=== PATIENT | male | born 1995 | race African-American/Black ===

== ENCOUNTER 2019-05-13 22:49 | Emergency (ER) | payer SELFPAY ==
[~2019-05-13] VITALS: Ht 190.5 cm; Wt 167.0 kg
[2019-05-13] MEDS ORDERED: NS IV 1000 ML 1,000 ML IV SCH (23:01)
[2019-05-13 23:15] LABS: BASOPHILS % (AUTO) 0 % (0-10); EOSINOPHILS # (AUTO) 0.1 10^3/uL (0.0-0.3); EOSINOPHILS % (AUTO) 2 % (0-10); HEMATOCRIT 46 % (40-54); HEMOGLOBIN 15.8 G/DL (13.3-17.7); LYMPHOCYTES % (AUTO) 43 % (12-44); MEAN CORPUSCULAR HEMOGLOBIN 29 PG (25-34); MEAN CORPUSCULAR HGB CONC 34 G/DL (32-36); MEAN CORPUSCULAR VOLUME 84 FL (80-99); MEAN PLATELET VOLUME 11.7 FL (7.4-10.4); MONOCYTES # (AUTO) 0.4 X 10^3 (0.0-1.0); MONOCYTES % (AUTO) 5 % (0-12); NEUTROPHILS # (AUTO) 3.5 X 10^3 (1.8-7.8); NEUTROPHILS % (AUTO) 50 % (42-75); PLATELET COUNT 319 10^3/uL (130-400); RED CELL DISTRIBUTION WIDTH 14.9 % (10.0-14.5); WHITE BLOOD COUNT 6.9 10^3/uL (4.3-11.0)
--- NOTE | 2019-05-13 23:22 | ED Syncope ---
General Chief Complaint: Dizziness/Syncope Stated Complaint: SYNCOPE Source of Information: Patient, EMS, Other Exam Limitations: Physical Impairments History of Present Illness Date Seen by Provider: May 13, 2019 Time Seen by Provider: 22:48 Initial Comments Patient arrives to the ER by EMS from [facility] where she was eating dinner had about a half a shot of alcohol and felt warm and flushed in the face so he got up to go the bathroom. His significant other brought him something to drink and he said he started to feel little better so when he got up to walk out of the bathroom she says he collapsed to the floor striking his head. He denies striking his head or completely passing out. He is not had any fevers or chills nausea vomiting diarrhea or pain. He denies shortness of breath. He has no history of seizure disorders or any medical disorder. He does do annual checkups with his doctor. He denies any diabetes. He had a blood sugar of 130s per EMS. No witnessed convulsions or seizure-like activity. He has been in town for a visiting family and was on his way back home to [place]. He is not having any shortness of breath, pain in his calves or history of clotting disorder. No significant familial medical history. Allergies and Home Medications Allergies Coded Allergies: No Known Drug Allergies (Unverified , 05/13/19) Patient Home Medication List Home Medication List Reviewed: Yes Review of Systems Constitutional: No chills, No diaphoresis; dizziness; No fever, No malaise; weakness EENTM: No ear discharge, No hearing loss, No ear pain, No blurred vision Respiratory: No cough, No short of breath Cardiovascular: No chest pain, No edema Gastrointestinal: No abdominal pain, No constipation, No diarrhea, No nausea Genitourinary: No discharge, No dysuria Musculoskeletal: No back pain, No joint pain Skin: No pruritus, No rash Psychiatric/Neurological: Denies Headache, Denies Numbness, Denies Paresthesia All Other Systems Reviewed Negative Unless Noted: Yes Past Mcrzoxg-Jujjsv-Uognav Hx Patient Social History Alcohol Use: Occasionally Uses Alcohol Beverage of Choice: Cheap Liquor Recreational Drug Use: Yes Drug of Choice: MJ Smoking Status: Never a Smoker Recent Foreign Travel: No Contact w/Someone Who Travel: No Physical Exam Vital Signs Vital Signs - First Documented 05/13/19 22:50 Temp 36.5 Pulse 91 Resp 18 B/P (MAP) 143/76 (98) Capillary Refill : Height, Weight, BMI Height: '" Weight: lbs. oz. kg; BMI Method: General Appearance: Mild Distress, Obese HEENT: PERRL/EOMI, Pharynx Normal, Moist Mucous Membranes; No Pharyngeal Erythema; TM Abnormal (R) (injection, mild erythema without loss of lucency or landmarks of the tympanic membrane); No Tonsillar Enlargement Neck: Full Range of Motion, Normal Inspection, Non Tender, Supple Cardiovascular: Regular Rate, Rhythm, No Murmur, Normal Peripheral Pulses Respiratory: Chest Non Tender, Lungs Clear, Normal Breath Sounds, No Accessory Muscle Use, No Respiratory Distress Gastrointestinal: Normal Bowel Sounds, No Organomegaly, Non Tender, Soft Back: Normal Inspection, No Vertebral Tenderness Extremities: Normal Capillary Refill, Normal Inspection, Normal Range of Motion, Non Tender, No Calf Tenderness Neurologic/Psychiatric: Alert, Oriented x3, Other (GCS 15; pupils 4 mm round reactive. Difficulty focusing or following the examiner's pen) Cranial Nerves: Normal Hearing, Normal Speech, PERRL Skin: Normal Color, Warm/Dry Progress/Results/Core Measures Results/Orders Lab Results Laboratory Tests Test 05/13/19 22:53 05/13/19 23:51 05/14/19 01:10 05/14/19 01:27 Range/Units White Blood Count 6.9 4.3-11.0 10^3/uL Red Blood Count 5.54 4.35-5.85 10^6/uL Hemoglobin 15.8 13.3-17.7 G/DL Hematocrit 46 40-54 % Mean Corpuscular Volume 84 80-99 FL Mean Corpuscular Hemoglobin 29 25-34 PG Mean Corpuscular Hemoglobin Concent 34 32-36 G/DL Red Cell Distribution Width 14.9 H 10.0-14.5 % Platelet Count 319 130-400 10^3/uL Mean Platelet Volume 11.7 H 7.4-10.4 FL Neutrophils (%) (Auto) 50 42-75 % Lymphocytes (%) (Auto) 43 12-44 % Monocytes (%) (Auto) 5 0-12 % Eosinophils (%) (Auto) 2 0-10 % Basophils (%) (Auto) 0 0-10 % Neutrophils # (Auto) 3.5 1.8-7.8 X 10^3 Lymphocytes # (Auto) 3.0 1.0-4.0 X 10^3 Monocytes # (Auto) 0.4 0.0-1.0 X 10^3 Eosinophils # (Auto) 0.1 0.0-0.3 10^3/uL Basophils # (Auto) 0.0 0.0-0.1 10^3/uL Sodium Level 141 135-145 MMOL/L Potassium Level 3.3 L 3.6-5.0 MMOL/L Chloride Level 105 98-107 MMOL/L Carbon Dioxide Level 21 21-32 MMOL/L Anion Gap 15 H 5-14 MMOL/L Blood Urea Nitrogen 8 7-18 MG/DL Creatinine 1.43 H 0.60-1.30 MG/DL Estimat Glomerular Filtration Rate > 60 BUN/Creatinine Ratio 6 Glucose Level 158 H 70-105 MG/DL Calcium Level 8.9 8.5-10.1 MG/DL Corrected Calcium 8.7 8.5-10.1 MG/DL Magnesium Level 1.8 1.6-2.4 MG/DL Total Bilirubin 1.0 0.1-1.0 MG/DL Aspartate Amino Transf (AST/SGOT) 18 5-34 U/L Alanine Aminotransferase (ALT/SGPT) 43 0-55 U/L Alkaline Phosphatase 64 40-136 U/L Ammonia 57 H 11-32 UMOL/L Troponin I < 0.028 <0.028 NG/ML B-Type Natriuretic Peptide < 10.0 <100.0 PG/ML Total Protein 7.4 6.4-8.2 GM/DL Albumin 4.2 3.2-4.5 GM/DL Serum Alcohol < 10 <10 MG/DL Salicylates Level < 5.0 L 5.0-20.0 MG/DL Acetaminophen Level < 10 L 10-30 UG/ML Blood Gas Puncture Site LEFT RADIAL Blood Gas Patient Temperature 36.5 Arterial Blood pH 7.39 7.37-7.43 Arterial Blood Partial Pressure CO2 41 35-45 MMHG Arterial Blood Partial Pressure O2 86 79-93 MMHG Arterial Blood HCO3 24 23-27 MMOL/L Arterial Blood Total CO2 25.4 21.0-31.0 MMOL/L Arterial Blood Oxygen Saturation 97 94-100 % Arterial Blood Base Excess -0.3 -2.5-2.5 MMOL/L Fabian Test YES-POS Blood Gas Ventilator Setting NO Blood Gas Inspired Oxygen ROOM AIR Urine Color YELLOW Urine Clarity CLEAR Urine pH 6.0 5-9 Urine Specific [place] 1.020 1.016-1.022 Urine Protein TRACE NEGATIVE Urine Glucose (UA) NEGATIVE NEGATIVE Urine Ketones NEGATIVE NEGATIVE Urine Nitrite NEGATIVE NEGATIVE Urine Bilirubin NEGATIVE NEGATIVE Urine Urobilinogen 1.0 < = 1.0 MG/DL Urine Leukocyte Esterase NEGATIVE NEGATIVE Urine RBC (Auto) NEGATIVE NEGATIVE Urine RBC NONE /HPF Urine WBC 0-2 /HPF Urine Squamous Epithelial Cells 2-5 /HPF Urine Crystals NONE /LPF Urine Bacteria NEGATIVE /HPF Urine Casts PRESENT /LPF Urine Hyaline Casts 2-5 H /LPF Urine Mucus LARGE H /LPF Urine Other FEW SPERM H /HPF Urine Culture Indicated NO Urine Opiates Screen NEGATIVE NEGATIVE Urine Oxycodone Screen NEGATIVE NEGATIVE Urine Methadone Screen NEGATIVE NEGATIVE Urine Propoxyphene Screen NEGATIVE NEGATIVE Urine Barbiturates Screen NEGATIVE NEGATIVE Ur Tricyclic Antidepressants Screen NEGATIVE NEGATIVE Urine Phencyclidine Screen NEGATIVE NEGATIVE Urine Amphetamines Screen NEGATIVE NEGATIVE Urine Methamphetamines Screen NEGATIVE NEGATIVE Urine Benzodiazepines Screen NEGATIVE NEGATIVE Urine Cocaine Screen NEGATIVE NEGATIVE Urine Cannabinoids Screen POSITIVE H NEGATIVE My Orders Orders - ALEIDA HANSEN Ct Head/Cervical Spine Wo (05/13/19 22:58) Chest 1 View, Ap/Pa Only (05/13/19 22:58) Cbc With Automated Diff (05/13/19 22:58) Comprehensive Metabolic Panel (05/13/19 22:58) Ua Culture If Indicated (05/13/19 22:58) Alcohol (05/13/19 22:58) Drug Screen Stat (Urine) (05/13/19 22:58) Magnesium (05/13/19 22:58) Ekg Tracing (05/13/19 22:58) Continuous Ekg Monitoring (05/13/19 22:58) Troponin I (05/13/19 22:58) BNP (05/13/19 22:58) Ed Iv/Invasive Line Start (05/13/19 23:01) Ns Iv 1000 Ml (Sodium Chloride 0.9%) (05/13/19 23:01) Ammonia (05/13/19 22:53) Rifaximin Tablet (Xifaxan Tablet) (05/14/19 01:00) Arterial Blood Gas (05/14/19 01:10) Ct Abdomen/Pelvis W (05/14/19 01:03) Lactulose Oral Solution (Enulose Oral So (05/14/19 01:15) Iohexol Injection (Omnipaque 350 Mg/Ml 1 (05/14/19 01:15) Received Contrast (Hold Metformin- Contr (05/14/19 01:15) Ns (Ivpb) (Sodium Chloride 0.9% Ivpb Bag (05/14/19 01:15) Ed Iv/Invasive Line Start (05/14/19 01:11) Ns Iv 1000 Ml (Sodium Chloride 0.9%) (05/14/19 01:11) Acetaminophen (05/14/19 01:11) Salicylate (05/14/19 01:11) Straight Cath For Spec.-Adult (05/14/19 01:13) Potassium Cl 10meq/50ml Ivpb (Kcl 10 Meq (05/14/19 01:45) Medications Given in ED Current Medications Medications Dose Ordered Sig/David Route Start Time Stop Time Status Last Admin Dose Admin Iohexol 100 ml ONCE ONCE IV 05/14/19 01:15 05/14/19 01:16 DC 05/14/19 02:32 100 ML Potassium Chloride 50 ml @ 50 mls/hr ONCE ONCE IV 05/14/19 01:45 05/14/19 02:44 DC 05/14/19 03:29 50 MLS/HR Sodium Chloride 100 ml ONCE ONCE IV 05/14/19 01:15 05/14/19 01:16 DC 05/14/19 02:33 80 ML Vital Signs/I&O 05/13/19 22:50 Temp 36.5 Pulse 91 Resp 18 B/P (MAP) 143/76 (98) Progress Progress Note #1: Time: 23:26 Progress Note Syncopal episode. Patient acts like he is postictal but there is no witnessed seizure-like activity nor history of seizures. Negative CT of his head and neck to rule out injury or bleed. It EKG, troponin and BNP as well as labs urine drug screen and alcohol level. Progress Note #2: Time: 00:54 Progress Note After initial workup all we were able to find was hyperammonemia. The patient and his girlfriend deny that he has any history of hepatitis, cirrhosis or liver disease. He states that he does occasionally drink not very much. He is becoming obtunded and difficult to answer questions. Plan to give him some rifaximin and because we are on ICU diversion he may need to ship elsewhere. Progress Note #3: Time: 01:13 Progress Note We have as of yet been unable to obtain urine. Reviewing to attempt straight catheter and get an ABG to confirm is not retaining CO2. Plan to get a CT of the abdomen pelvis looking for any issues. He does not have elevated LFTs. Need to see a drug screen, toxicology. Progress Note #4: Time: 03:14 Progress Note ABG is unremarkable. He is waking up answering questions appropriately and more animated after some IV fluids. His urine drug screen only reveals cannabis. He denies using any other recreational drugs or adulterants. We'll let him finish his IV fluids and get the results of the CT scan and if these are all normal he feels ready to go home. Initial ECG Impression Date: May 13, 2019 Initial ECG Impression Time: 23:00 Initial ECG Rate: 88 Initial ECG Rhythm: Normal Sinus Initial ECG Intervals: Normal Initial ECG Impression: Normal, Nonspecific Changes Initial ECG Comparisson: No Previous ECG Available Comment Incomplete right bundle branch block with sinus rhythm and no clinically relevant ST elevation or depression. Diagnostic Imaging Diagonstic Imaging: Xray Plain Films/CT/US/NM/MRI: chest (1v) Comments No acute cardiopulmonary process noted on one view chest x-ray. Reviewed: Reviewed by Me Diagonstic Imaging: CT (with IV contrast) Plain Films/CT/US/NM/MRI: c-spine, head Comments No intracranial hemorrhage, mass effect, mass lesion, edema or large territory infarct. There is no apparent coup or contre-coup injury. Hernandez-white differentiation is preserved. Ventricles and sulci are symmetrical and not abnormally prominent. CT C-spine shows no canal or foraminal stenosis. There is no paravertebral soft tissue swelling. No acute bony pathology or significant degenerative changes. Reviewed: Reviewed [place] Study, Reviewed by Me Diagonstic Imaging: CT (with IV contrast) Plain Films/CT/US/NM/MRI: abdomen, pelvis Comments No acute abdominal or pelvic pathology apparent. Reviewed: Reviewed [place] Study, Reviewed by Me Departure Impression Primary Impression: Syncope Qualified Codes: R55 - Syncope and collapse Additional Impression: Hyperammonemia Disposition: HOME, SELF-CARE Condition: Improved Departure-Patient Inst. Decision time for Depature: 04:20 Referrals: NO,LOCAL PHYSICIAN (PCP/Family) Primary Care Physician Patient Instructions: Near Fainting (DC) Add. Discharge Instructions: Drink lots of fluids over the next couple days. Thursday call your primary care doctor and request a follow-up appointment for further evaluation for what could've caused your episode. If your symptoms continue to happen then you need to return to the nearest ER for further evaluation. All discharge instructions reviewed with patient and/or family. Voiced understanding. ALEIDA HANSEN May 13, 2019 23:22 POS
[2019-05-13 23:28] LABS: ALANINE AMINOTRANSFERASE 43 U/L (0-55); ALBUMIN 4.2 GM/DL (3.2-4.5); ALKALINE PHOSPHATASE 64 U/L (40-136); BUN/CREATININE RATIO 6; CALCIUM 8.9 MG/DL (8.5-10.1); CARBON DIOXIDE 21 MMOL/L (21-32); CHLORIDE 105 MMOL/L (98-107); CREATININE SERUM 1.43 MG/DL (0.60-1.30); GFR ESTIMATED > 60; GLUCOSE 158 MG/DL (70-105); MAGNESIUM 1.8 MG/DL (1.6-2.4); POTASSIUM 3.3 MMOL/L (3.6-5.0); SODIUM 141 MMOL/L (135-145); TOTAL PROTEIN 7.4 GM/DL (6.4-8.2)
[2019-05-14] MEDS ORDERED: RIFAXIMIN 550 MG TABLET (XIFAXAN) PO ONE (01:00)
[2019-05-14] MEDS ORDERED: NS IV 1000 ML 1,000 ML IV SCH (01:11)
[2019-05-14] MEDS ORDERED: NS 100 ML (IVPB) BAG IV ONE (01:15)
[2019-05-14] MEDS ORDERED: LACTULOSE SYRUP 10GM/15ML (ENULOSE) 30ML UDC PO ONE (01:15)
[2019-05-14] MEDS ORDERED: HOLD METFORMIN - RECEIVED CONTRAST 20 ML VIAL IV SCH (01:15)
[2019-05-14] MEDS ORDERED: IOHEXOL 350 MG/ML 100 ML (OMNIPAQUE 350) VIAL IV ONE (01:15)
[2019-05-14 01:20] LABS: ABG BASE EXCESS -0.3 MMOL/L (-2.5-2.5); ABG OXYGEN SATURATION 97 % (94-100); ABG PCO2 41 MMHG (35-45); ABG PH 7.39 (7.37-7.43); ABG PO2 86 MMHG (79-93); ABG TCO2 25.4 MMOL/L (21.0-31.0)
[2019-05-14 01:21] LABS: ALLENS TEST YES-POS; INSPIRED O2 ROOM AIR; PATIENT TEMP 36.5; VENTILATOR NO
[2019-05-14 01:31] LABS: SALICYLATE < 5.0 MG/DL (5.0-20.0)
[2019-05-14 01:35] LABS: BILIRUBIN,URINE NEGATIVE (NEGATIVE); CLARITY,URINE CLEAR; COLOR,URINE YELLOW; GLUCOSE, URINE (UA) NEGATIVE (NEGATIVE); KETONES,URINE NEGATIVE (NEGATIVE); LEUKOCYTE ESTERASE ,URINE NEGATIVE (NEGATIVE); NITRITE,URINE NEGATIVE (NEGATIVE); PROTEIN,URINE TRACE (NEGATIVE)
[2019-05-14 01:35] LABS: ACETAMINOPHEN < 10 UG/ML (10-30)
[2019-05-14 01:45] LABS: AMPHETAMINE SCREEN, URINE NEGATIVE (NEGATIVE); BACTERIA,URINE NEGATIVE /HPF; BARBITURATE SCREEN URINE NEGATIVE (NEGATIVE); BENZODIAZEPINES SCREEN URINE NEGATIVE (NEGATIVE); CANNABINOID SCREEN, URINE POSITIVE (NEGATIVE); COCAINE SCREEN URINE NEGATIVE (NEGATIVE); METHADONE STAT NEGATIVE (NEGATIVE); METHAMPHETAMINE SCREEN URINE S NEGATIVE (NEGATIVE); OPIATE SCREEN URINE NEGATIVE (NEGATIVE); OXYCODONE STAT NEGATIVE (NEGATIVE); PROPOXYPHENE STAT NEGATIVE (NEGATIVE); TRICYCLIC ANTIDEPRESSANTS SCRE NEGATIVE (NEGATIVE); WBC,URINE 0-2 /HPF
[2019-05-14] MEDS ORDERED: POTASSIUM CL 10MEQ/50ML IVPB 50 ML IV ONE (01:45)
[2019-05-14 01:46] LABS: URINE OTHER FEW SPERM /HPF
[2019-05-14 04:22] VITALS: BP 132/80
--- NOTE | 2019-05-14 07:13 | Diagnostic Imaging Report ---
PROCEDURE: CT abdomen and pelvis with contrast. TECHNIQUE: Multiple contiguous axial images were obtained through the abdomen and pelvis after administration of intravenous contrast. Auto Exposure Controls were utilized during the CT exam to meet ALARA standards for radiation dose reduction. INDICATION: Found down. Lethargy. FINDINGS: The visualized lung bases demonstrate no infiltrate or evidence of an effusion. The liver demonstrates no focal intrahepatic abnormality. The liver does appear to be of low density suggesting steatosis. Portal veins are patent. The gallbladder is nondistended. There is no radiodense gallstone. Spleen normal in size. There is no adrenal mass. Pancreas unremarkable. Kidneys enhance normally and are not obstructed. There is normal excretion of contrast on the delayed exam. Small and large bowel normal in caliber without obstruction. There are no findings of abnormal bowel thickening. There are a few uncomplicated sigmoid diverticula. The appendix is visualized and is normal. There are no findings of free air, free fluid or abscess. There are no pathologically enlarged lymph nodes. Urinary bladder unremarkable. The aorta is normal in caliber. There is no acute or suspicious osseous abnormality. IMPRESSION: 1. No CT evidence of an acute inflammatory or obstructive process within the abdomen or pelvis. 2. Possible mild hepatic steatosis. Dictated by: Dictated on workstation # [id number]
--- NOTE | 2019-05-14 07:47 | Diagnostic Imaging Report ---
INDICATION: Dizziness and syncope. FINDINGS: The lungs demonstrate no focal alveolar consolidation. There is no pleural effusion. There is no pneumothorax. Heart size and mediastinal contours appear appropriate for AP technique. No acute or suspicious osseous abnormality is evident. IMPRESSION: 1. No radiographic evidence of an acute cardiopulmonary process. Dictated by: Dictated on workstation # [id number]
--- NOTE | 2019-05-14 08:42 | Diagnostic Imaging Report ---
PROCEDURE: CT head and CT cervical spine without contrast. TECHNIQUE: Multiple contiguous axial images were obtained through the brain and cervical spine without the use of intravenous contrast. Sagittal and coronal reformations through the cervical spine were then performed. Auto Exposure Controls were utilized during the CT exam to meet ALARA standards for radiation dose reduction. DATE: May 13, 2019. COMPARISON: None. INDICATION: 23-year-old male, dizziness and syncope. Head and neck pain FINDINGS: There is nonspecific opacification in the bilateral ethmoidal air cells. The ventricles and cerebral spinal fluid spaces are of normal size and configuration for the patient's age. There is no mass effect or midline shift. There is no acute intracranial hemorrhage. There is no abnormal extra-axial fluid collection. There is limited evaluation of the lower aspect of the cervical spine relating to dose and patient body habitus. Cervical spine evaluation is particularly limited at and below the level of C5. There is no identified facet joint subluxation or dislocation. There is no asymmetric widening of the cervical disc spaces. The cervical disc heights are fairly well-preserved. The facet joints are grossly unremarkable in appearance. CT is limited for assessment of disc pathology as well as for evaluation of additional causes of non-bony pathology within the spinal canal. There is no identified acute fracture of the cervical spine. Very limited evaluation of the lung apices is unremarkable. There is markedly limited soft tissue evaluation given the degree of quantum mottle artifact. IMPRESSION: 1. No identified acute intracranial abnormality. 2. No identified acute abnormality of the cervical spine. 3. Very limited evaluation of the lower cervical spine relating to dose parameters and patient body habitus. Dictated by: Dictated on workstation # [id number]
== END 2019-05-14 04:30 | disposition home or self-care (01) ==
LOC: ER 22:50
DX: R55 Syncope and collapse (principal); E72.20 Disorder of urea cycle metabolism, unspecified
CPT/HCPCS: 36415; 70450; 71045; 72125; 74177; 80053; 80306; 80320; 80329; 81000; 82140; 82805; 83735; 83880; 84484; 85025